=== PATIENT | female | born 1940 | race Caucasian/White ===

== ENCOUNTER → 2020-12-25 | Outpatient (CLI) | payer MEDICARE, SELFPAY ==
--- NOTE | 2020-12-25 11:30 | LES_PTH ---
PATIENT: HEATHER HERRERA LOC: [facility] U#:[id number] AGE/SX: 80/F ROOM: RE12/25/[address]: Dr. Huan Segundo MD : 1940 BED: DIS: 12/25/2020 SPEC #: [id number] RECD: 12/25/20 15:13 STATUS: ANGELICA RENelli #: [id number] LINDSAY: 12/25/20 11:[address]: Huan Segundo DEPT: SURGICAL PATHOLOGY RECD BY: Ian Arreola ENTERED: 12/28/20 07:10 SP TYPE: Lesion OTHR DR: Dr. Darion Norton MD Tissues: Skin of eyelid, NOS Procedures: Surgery Specimen Level IV HEADER OPERATION: Lesion removal right lower lid PRE-OP DIAGNOSIS: Lesion right lower lid TISSUE SUBMITTED: Lesion right lower lid MICROSCOPIC DIAGNOSIS Lesion of right lower eyelid, biopsy: Epidermal inclusion cyst. AM:tashi 12/29/2020 MICROSCOPIC DESCRIPTION Slides are reviewed. GROSS DESCRIPTION Received in fixative is one container labeled with the patient's name and designated right lower lid. The specimen consists of two irregular fragments of chowdhury tissue that in aggregate measure 0.6 x 0.5 x 0.2 cm. The specimen is totally submitted in one cassette. / AM:tashi 12/28/20 TC:5 CPT: 80809
== END | disposition home or self-care (01) ==
LOC: LABSPEC 15:41
PROVIDERS: PCP Family Medicine; Visit Provider Ophthalmology
DX: H02.822 Cysts of right lower eyelid (principal)
CPT/HCPCS: 88305

== ENCOUNTER → 2021-01-07 08:54 | Outpatient (CLI) | payer MEDICARE, OTHER, SELFPAY ==
--- NOTE | 2021-01-07 09:05 | RAD_ITS ---
STUDY: X-RAY - ESOPHAGUS (BARIUM SWALLOW) WITH FLUOROSCOPY REASON FOR EXAM: Female, 80 years old. DYSPHAGIA TECHNIQUE: 19 view(s) of the esophagus were obtained following swallowing of barium. FLUOROSCOPY TIME (if supplied): (25 seconds) minutes/seconds COMPARISON: None. FINDINGS: There is no demonstrated esophageal foreign body. There is no demonstrated stricture or mucosal abnormality. Normal gastroesophageal junction, without a demonstrated hiatal hernia. The patient ingested a 12 mm tablet of barium without any difficulty. There is atherosclerotic calcification of the aortic arch with tortuosity of the descending aorta. Normal visualized pulmonary parenchyma. There are degenerative changes of the visualized thoracic spine. RAD/Esophagus Dual Contrast IMPRESSION: Normal plain film x-ray examination (barium swallow) of the esophagus. Electronically Signed: Haresh Galloway MD at 9:33 EDT , Service support ,
== END ==
PROVIDERS: PCP Family Medicine; Referring Provider Internal Medicine Gastroenterology; Visit Provider Internal Medicine Gastroenterology
DX: R13.10 Dysphagia, unspecified (principal)
CPT/HCPCS: 74220; 74221

== ENCOUNTER → 2022-07-04 | Outpatient (CLI) | payer MEDICARE, OTHER, SELFPAY | END | disposition home or self-care (01) | LOC: LABSPEC 17:01 | PROVIDERS: PCP Family Medicine; Visit Provider Student in an Organized Health Care Education/Training Program | DX: Z01.419 Encounter for gynecological examination (general) (routine) without abnormal findings (principal); N30.00 Acute cystitis without hematuria | CPT/HCPCS: 87086 ==

== ENCOUNTER → 2023-05-09 | Outpatient (CLI) | payer MEDICARE, OTHER, SELFPAY ==
--- NOTE | 2023-05-08 16:30 | LES_PTH ---
PATIENT: HEATHER HERRERA LOC: [facility] U#:[id number] AGE/SX: 82/F ROOM: RE05/09/[address]: Dr. Huan Segundo MD : 1940 BED: DIS: 05/09/2023 SPEC #: [id number] RECD: 05/09/23 10:08 STATUS: ANGELICA RENelli #: [id number] LINDSAY: 05/08/23 16:[address]: Huan Segundo DEPT: SURGICAL PATHOLOGY RECD BY: Silvia Mireles ENTERED: 05/09/23 10:27 SP TYPE: Lesion OTHR DR: Dr. Darion Norton MD Tissues: Skin of eyelid, NOS Procedures: Surgery Specimen Level IV HEADER OPERATION: Left lower lid lesion excision PRE-OP DIAGNOSIS: Left lower lid lesion TISSUE SUBMITTED: Left lower lid lesion MICROSCOPIC DIAGNOSIS Left lower lid lesion, excision: Epidermal inclusion cyst. JUAN C:tashi 05/10/2023 MICROSCOPIC DESCRIPTION Slides are reviewed. GROSS DESCRIPTION Received in fixative is one container labeled with the patient's name and designated cyst left lower lid. The specimen consists of a piece of chowdhury-white skin measuring 0.5 x 0.4 x 0.1 cm. The specimen is inked, bisected and submitted entirely in one cassette. / SJ:rg 05/09/2023 TC:5 [facility]: [id number]
== END | disposition home or self-care (01) ==
LOC: LABSPEC 10:19
PROVIDERS: PCP Family Medicine; Referring Provider Ophthalmology; Visit Provider Ophthalmology
DX: L72.9 Follicular cyst of the skin and subcutaneous tissue, unspecified (principal)
CPT/HCPCS: 88305

== ENCOUNTER → 2024-06-08 | Outpatient (CLI) | payer MEDICARE, OTHER, SELFPAY ==
--- NOTE | 2024-06-08 07:56 | MRI_ITS ---
EXAM: MR PELVIS WITHOUT INTRAVENOUS CONTRAST CLINICAL INDICATION: UTERINE LEIOMYOMA -- ordered without per Dr. Vital TECHNIQUE: Multiplanar and multisequence MR images of the pelvis without intravenous contrast. COMPARISON: No relevant prior studies available. FINDINGS: BOWEL: Diverticulosis of the colon noted without evidence of acute diverticulitis. INTRAPERITONEAL SPACE: Normal. No free pelvic fluid. BLADDER: Normal. OVARIES: Left ovary is enlarged measuring 3.7 x 2.3 cm and contains 2.1 and 1.8 cm predominantly cystic lesions. Right ovary is not clearly identified likely related to atrophy. UTERUS/CERVIX: Uterus measures 9.0 x 4.4 x 3.6 cm. Endometrial thickness is 11 mm. 3 cm right uterine mass with decreased T1 and T2 signal intensity consistent with a fibroid. An additional 11 mm fundal uterine fibroid noted with similar signal characteristics as well as 11 and 9 mm left-sided fibroids. BONES/JOINTS: Normal. SOFT TISSUES: Normal. No pelvic wall hernia. LYMPH NODES: Normal. No enlarged lymph nodes. MRI/Pelvis (Routine) IMPRESSION: 1. Fibroid uterus. 2. Thickened endometrium which may represent endometrial pathology or related to hormone therapy. 3. Cystic changes of the left ovary. Recommend pelvic ultrasound follow-up in 3-4 months for further evaluation of the ovary. Electronically Signed: Andrew Hill MD at 10:46 EDT ,
== END | disposition home or self-care (01) ==
LOC: MRI 07:49
PROVIDERS: PCP Family Medicine; Referring Provider Obstetrics & Gynecology; Visit Provider Obstetrics & Gynecology
DX: D25.9 Leiomyoma of uterus, unspecified (principal)
CPT/HCPCS: 72195